=== PATIENT | male | born 1970 | race Two or more races ===

== ENCOUNTER 2022-06-10 22:01 | Inpatient (IN) | payer OTHER ==
[~2022-06-10] VITALS: Ht 195.6 cm; Wt 189.6 kg
[2022-06-10] MEDS ORDERED: ACETAMINOPHEN 650 mg PER 20.3 mL UD PO ONE ×2 (22:45)
[2022-06-10] MEDS ORDERED: ONDANSETRON ODT 4 MG TAB PO ONE (22:45)
[2022-06-10] MEDS ORDERED: ACETAMINOPHEN 500 MG TAB PO ONE (23:00)
[2022-06-10 23:17] LABS: Hemoglobin 14.1 g/dL (13.5-17.5)
[2022-06-10 23:18] LABS: Basophils # (auto) 0 10 ^3/uL (0-0.2); Basophils % (auto) 0.5 % (0.0-2.0); Eosinophils # (auto) 0.1 10 ^3/uL (0-0.8); Eosinophils % (auto) 1.5 % (0.0-7.0); Hematocrit 41.8 % (41.0-53.0); Lymphocytes # (auto) 1.3 10 ^3/uL (0.4-5.4); Lymphocytes % (auto) 14.9 % (10.0-50.0); Mean Corpuscular Hemoglobin 25.6 pg (28.0-32.0); Mean Corpuscular Hgb Conc. 33.7 g/dL (32.0-36.0); Monocytes # (auto) 1.1 10 ^3/uL (0-1.3); Monocytes % (auto) 12.7 % (0.0-12.0); Neutrophils # (auto) 6.3 10 ^3/uL (1.6-8.6); Neutrophils % (auto) 70.4 % (37.0-80.0); Nucleated Red Blood Cells % 0.2 %; Red Blood Cells 5.49 10^6/uL (4.5-5.90); Red Cell Distribution Width 15.5 % (11.8-14.3)
[2022-06-10 23:23] LABS: BUN/Creatinine Ratio 13.4; Potassium 3.5 mmol/L (3.5-5.1)
[2022-06-10 23:26] LABS: Total Protein 7.6 g/dL (6.4-8.2)
[2022-06-11] MEDS ORDERED: HEPARIN DRIP/D5W 100UNITS/ML 250 ML IV SCH ×2 (00:45→08:45)
[2022-06-11] MEDS ORDERED: HEPARIN SODIUM (PORCINE) 5000 UNITS/ML 1ML VIAL IV ONE (00:45)
[2022-06-11 01:30] LABS: INR 1.12 (0.9-1.15); Partial Thromboplastin Time 27.8 sec (24.6-33.4)
[2022-06-11] MEDS ORDERED: IOHEXOL 350 MG/ML 100ML IJ ONE (01:36)
[2022-06-11] MEDS ORDERED: HYDROcodone-ACET 5/325MG TAB PO PRN (03:00)
[2022-06-11] MEDS ORDERED: ACETAMINOPHEN 325 MG TAB PO PRN (03:00)
[2022-06-11] MEDS ORDERED: DOCUSATE SOD 100 MG CAP PO PRN (03:00)
[2022-06-11] MEDS ORDERED: ONDANSETRON HCL 4 MG/2 ML VIAL IV PRN (03:00)
[2022-06-11] MEDS: SODIUM CHLORIDE 0.9% 1,000 ML IV SCH ×2 (03:56→20:01)
[2022-06-11] MEDS ORDERED: NITROGLYCERIN 0.4 MG SL TAB SL PRN (04:30)
[2022-06-11] MEDS ORDERED: MORPHINE SULFATE INJ 2 MG/ml SYRG IV PRN (04:30)
[2022-06-11 05:31] LABS: Eosinophils # (auto) 0.2 10 ^3/uL (0-0.8); Hemoglobin 13.8 g/dL (13.5-17.5)
[2022-06-11 05:38] LABS: Basophils # (auto) 0.1 10 ^3/uL (0-0.2); Basophils % (auto) 0.7 % (0.0-2.0); Eosinophils % (auto) 2.3 % (0.0-7.0); Lymphocytes # (auto) 2.3 10 ^3/uL (0.4-5.4); Lymphocytes % (auto) 26.7 % (10.0-50.0); Mean Corpuscular Hemoglobin 25.8 pg (28.0-32.0); Mean Corpuscular Hgb Conc. 33.6 g/dL (32.0-36.0); Mean Corpuscular Volume 76.9 fL (80.0-100.0); Monocytes # (auto) 1.3 10 ^3/uL (0-1.3); Monocytes % (auto) 15.1 % (0.0-12.0); Neutrophils # (auto) 4.7 10 ^3/uL (1.6-8.6); Neutrophils % (auto) 55.2 % (37.0-80.0); Nucleated Red Blood Cells % 0.3 %; Red Blood Cells 5.33 10^6/uL (4.5-5.90); Red Cell Distribution Width 15.2 % (11.8-14.3); White Blood Cell 8.5 10^3/uL (4.4-10.8)
[2022-06-11 06:00] LABS: Albumin 3.2 g/dL (3.4-5.0); Potassium 3.7 mmol/L (3.5-5.1)
[2022-06-11] MEDS ORDERED: ALBUTEROL SULF HFA 90MCG INH 200DOSE IN SCH (06:00)
[2022-06-11 06:06] LABS: BUN/Creatinine Ratio 15.2; Total Protein 6.9 g/dL (6.4-8.2)
[2022-06-11 09:14] LABS: INR 1.16 (0.9-1.15); Partial Thromboplastin Time 28.7 sec (24.6-33.4)
[2022-06-11] MEDS: FAMOTIDINE (10MG/ML) 2ML VL IV SCH (10:39)
[2022-06-11] MEDS: cefTRIAXone 1GM/50ML D5W 50 ML IV SCH (10:40)
[2022-06-11] MEDS: ASPirin 81 mg TAB PO SCH (10:40)
[2022-06-11 21:51] VITALS: BP 142/84
[2022-06-11] MEDS: ATORVASTATIN 20 MG TAB PO SCH (22:22)
[2022-06-11] MEDS: ENOXAPARIN SOD 150 MG/1 ML SYRINGE SC SCH (22:25)
[2022-06-12 05:00] VITALS: BP 125/77
[2022-06-12 05:59] LABS: Potassium 3.6 mmol/L (3.5-5.1)
[2022-06-12 06:07] LABS: BUN/Creatinine Ratio 14.8; Calcium 7.9 mg/dL (8.5-10.1); Total Protein 6.7 g/dL (6.4-8.2)
[2022-06-12 06:08] LABS: Basophils # (auto) 0 10 ^3/uL (0-0.2); Basophils % (auto) 0.5 % (0.0-2.0); Eosinophils # (auto) 0.2 10 ^3/uL (0-0.8); Eosinophils % (auto) 2.3 % (0.0-7.0); Hemoglobin 13.3 g/dL (13.5-17.5); Lymphocytes # (auto) 1.8 10 ^3/uL (0.4-5.4); Lymphocytes % (auto) 24.6 % (10.0-50.0); Mean Corpuscular Hgb Conc. 31.7 g/dL (32.0-36.0); Mean Corpuscular Volume 78.8 fL (80.0-100.0); Monocytes # (auto) 0.9 10 ^3/uL (0-1.3); Monocytes % (auto) 12.7 % (0.0-12.0); Neutrophils # (auto) 4.4 10 ^3/uL (1.6-8.6); Neutrophils % (auto) 59.9 % (37.0-80.0); Red Blood Cells 5.33 10^6/uL (4.5-5.90); Red Cell Distribution Width 15.7 % (11.8-14.3); White Blood Cell 7.3 10^3/uL (4.4-10.8)
[2022-06-12 08:00] VITALS: BP_SYST 128; BP_SYST 139; BP_DIAS 81; BP_DIAS 88
[2022-06-12] MEDS: ENOXAPARIN SOD 150 MG/1 ML SYRINGE SC SCH ×2 (09:26→21:16)
[2022-06-12] MEDS: ASPirin 81 mg TAB PO SCH (09:26)
[2022-06-12] MEDS: FAMOTIDINE (10MG/ML) 2ML VL IV SCH (09:26)
[2022-06-12] MEDS: cefTRIAXone 1GM/50ML D5W 50 ML IV SCH (09:26)
[2022-06-12 11:57] VITALS: BP 128/81
[2022-06-12] MEDS ORDERED: AZITHROMYCIN 500MG/ 250ML 250 ML IV ONE (14:45)
[2022-06-12] MEDS ORDERED: FUROSEMIDE 40 MG/4 ML VIAL IV ONE (14:45)
[2022-06-12 16:00] VITALS: BP 151/92
[2022-06-12 20:10] VITALS: BP 136/84
[2022-06-12] MEDS: FUROSEMIDE 20 MG/2 ML VIAL IV SCH (20:14)
[2022-06-12] MEDS: ATORVASTATIN 20 MG TAB PO SCH (21:17)
[2022-06-12 22:00] VITALS: BP 136/84
[2022-06-13 05:00] VITALS: BP 132/92
[2022-06-13 05:39] LABS: Basophils # (auto) 0.1 10 ^3/uL (0-0.2); Basophils % (auto) 0.7 % (0.0-2.0); Eosinophils # (auto) 0.2 10 ^3/uL (0-0.8); Mean Corpuscular Hgb Conc. 33.1 g/dL (32.0-36.0); Nucleated Red Blood Cells % 0.1 %
[2022-06-13 05:42] LABS: Eosinophils % (auto) 2.7 % (0.0-7.0); Hematocrit 42.1 % (41.0-53.0); Lymphocytes # (auto) 2.2 10 ^3/uL (0.4-5.4); Lymphocytes % (auto) 27.5 % (10.0-50.0); Mean Corpuscular Hemoglobin 25.2 pg (28.0-32.0); Monocytes # (auto) 0.9 10 ^3/uL (0-1.3); Monocytes % (auto) 11.8 % (0.0-12.0); Neutrophils # (auto) 4.6 10 ^3/uL (1.6-8.6); Neutrophils % (auto) 57.3 % (37.0-80.0); Red Blood Cells 5.54 10^6/uL (4.5-5.90); Red Cell Distribution Width 15.4 % (11.8-14.3)
[2022-06-13] MEDS: FUROSEMIDE 20 MG/2 ML VIAL IV SCH ×2 (05:48→18:06)
[2022-06-13 05:51] LABS: Calcium 8.1 mg/dL (8.5-10.1); Potassium 3.5 mmol/L (3.5-5.1)
[2022-06-13 05:53] LABS: BUN/Creatinine Ratio 15.2
[2022-06-13 08:00] VITALS: BP_SYST 129; BP_SYST 140; BP_DIAS 81; BP_DIAS 95
[2022-06-13] MEDS: ASPirin 81 mg TAB PO SCH (11:07)
[2022-06-13] MEDS: FAMOTIDINE (10MG/ML) 2ML VL IV SCH (11:07)
[2022-06-13] MEDS: cefTRIAXone 1GM/50ML D5W 50 ML IV SCH (11:07)
[2022-06-13] MEDS: APIXABAN 5 MG TAB PO SCH ×2 (11:08→21:12)
[2022-06-13 12:00] VITALS: BP 140/95
[2022-06-13] MEDS ORDERED: POTASSIUM CHL 20 Meq TABLET PO ONE (12:15)
[2022-06-13] MEDS: AZITHROMYCIN 500MG/ 250ML 250 ML IV SCH (12:45)
[2022-06-13 16:00] VITALS: BP 112/76
[2022-06-13 20:00] VITALS: BP 112/76
[2022-06-13] MEDS: ATORVASTATIN 20 MG TAB PO SCH (21:12)
[2022-06-13 22:00] VITALS: BP 120/80
[2022-06-14] VITALS (7 sets, daily range): BP systolic 125–159; BP diastolic 75–106
[2022-06-14] MEDS: FUROSEMIDE 20 MG/2 ML VIAL IV SCH ×2 (06:08→18:15)
[2022-06-14 06:30] LABS: BUN/Creatinine Ratio 18.3; Calcium 8.5 mg/dL (8.5-10.1); Magnesium 2.4 mg/dL (1.6-2.6); Phosphorus 3.3 mg/dL (2.5-4.90); Potassium 3.6 mmol/L (3.5-5.1)
[2022-06-14] MEDS: FAMOTIDINE (10MG/ML) 2ML VL IV SCH (09:52)
[2022-06-14] MEDS: cefTRIAXone 1GM/50ML D5W 50 ML IV SCH (09:52)
[2022-06-14] MEDS: ASPirin 81 mg TAB PO SCH (09:56)
[2022-06-14] MEDS: APIXABAN 5 MG TAB PO SCH ×2 (09:56→21:44)
[2022-06-14] MEDS: AZITHROMYCIN 500MG/ 250ML 250 ML IV SCH (10:30)
[2022-06-14] MEDS: ATORVASTATIN 20 MG TAB PO SCH (21:44)
[2022-06-15 05:00] VITALS: BP 134/93
[2022-06-15] MEDS: FUROSEMIDE 20 MG/2 ML VIAL IV SCH (05:44)
[2022-06-15 08:59] VITALS: BP 151/96
[2022-06-15] MEDS: FAMOTIDINE (10MG/ML) 2ML VL IV SCH (10:00)
[2022-06-15] MEDS ORDERED: APIX5TAB PO (10:35)
[2022-06-15] MEDS ORDERED: FURO1TAB31 PO (10:35)
[2022-06-15] MEDS ORDERED: POTA-180 PO (10:35)
[2022-06-15] MEDS ORDERED: METO25TA5 PO (10:35)
[2022-06-15] MEDS: cefTRIAXone 1GM/50ML D5W 50 ML IV SCH (10:47)
[2022-06-15] MEDS: ASPirin 81 mg TAB PO SCH (11:30)
[2022-06-15] MEDS: APIXABAN 5 MG TAB PO SCH (11:31)
[2022-06-15] MEDS: AZITHROMYCIN 500MG/ 250ML 250 ML IV SCH (11:31)
[2022-06-15 12:58] VITALS: BP 134/96
[2022-06-20] MEDS ORDERED: APIXABAN 5 MG TAB PO SCH (22:00)
== END 2022-06-15 16:58 | disposition home or self-care (01) | DRG 134 ==
LOC: ER 22:01 → TELE 06-11 04:29 → TELE-CENTR 06-11 21:30
PROVIDERS: ADMIT Nurse Practitioner Family; ATTEND Internal Medicine
DX: I26.99 Other pulmonary embolism without acute cor pulmonale (principal); J96.01 Acute respiratory failure with hypoxia; I21.4 Non-ST elevation (NSTEMI) myocardial infarction; J10.00 Influenza due to other identified influenza virus with unspecified type of pneumonia; I27.20 Pulmonary hypertension, unspecified; I11.0 Hypertensive heart disease with heart failure; E88.09 Other disorders of plasma-protein metabolism, not elsewhere classified; J44.0 Chronic obstructive pulmonary disease with (acute) lower respiratory infection; I50.32 Chronic diastolic (congestive) heart failure; Z20.822 Contact with and (suspected) exposure to COVID-19; I82.431 Acute embolism and thrombosis of right popliteal vein; E78.5 Hyperlipidemia, unspecified; E11.9 Type 2 diabetes mellitus without complications; E66.01 Morbid (severe) obesity due to excess calories; Z86.718 Personal history of other venous thrombosis and embolism; Z86.73 Personal history of transient ischemic attack (TIA), and cerebral infarction without residual deficits; Z87.891 Personal history of nicotine dependence; Z68.42 Body mass index [BMI] 45.0-49.9, adult
CPT/HCPCS: 36415; 36600; 71045; 71275; 80048; 80053; 80061; 82306; 82805; 83036; 83735; 83880; 84100; 84439; 84443; 84484; 85025; 85379; 85610; 85730; 87426; 87804; 93005; 93306; 93970; 96361; 96365; 96376; 97116; 99291; G0378; J0696; J3490; Q0162